=== PATIENT | male | born 1980 | race African-American/Black ===

== ENCOUNTER 2017-06-11 03:07 | Emergency (ER) | payer SELFPAY ==
[~2017-06-11] VITALS: Ht 170.2 cm; Wt 80.2 kg
[2017-06-11 03:13] VITALS: BP 149/86; PULSE 81; RESP 12; TEMP 97.8; O2SAT 97
[2017-06-11 03:20] VITALS: RESP 16
[2017-06-11] MEDS ORDERED: CEPH-460 PO (03:42)
[2017-06-11] MEDS ORDERED: PRED50 PO (03:42)
[2017-06-11] MEDS ORDERED: ACYC800T PO (03:42)
--- NOTE | 2017-06-11 03:42 | PD ---
HPI Chief Complaint: Skin Problem Time Seen by Provider: 03:19 Travel History International Travel<30 days: No Contact w/Intl Traveler<30days: No Traveled to known affect area: No History of Present Illness HPI 36-year-old male here for evaluation of painful rash on scalp, face, and groin. Patient reports that he recently moved to a new residence. He is and has been in a monogamous relationship with his for the past 8 years. States that the rash started about 2-3 days ago his scalp which was very pruritic. He states that some of the lesions are open and are somewhat drainage. He also has 2 lesions on his right leg/thigh as well as on his groin at the base of his penis. There is no penile discharge. Denies fevers or chills. No visual disturbances. He smokes marijuana. Denies any other illicit drugs or IVDU. PFSH Past Medical History Diminished Hearing: No Immunizations Current: No Influenza Vaccination: No ?: Not Past Surgical History Abdominal Surgery: Yes (HERNIA REPAIR, abscess removal abdomen) Other Surgery: Yes (cyst in chest age 5, CHEST SURGERY FROM [facility]) Social History Alcohol Use: Yes (12 BEERS A DAY) Tobacco Use: Yes (1/2 PPD) Substance Use: No Allergies-Medications (Allergen,Severity, Reaction): Coded Allergies: No Known Allergies (Verified Adverse Reaction, Unknown, 06/11/17) Reported Meds & Prescriptions Reported Meds & Active Scripts Active Prednisone 50 Mg Tab 50 Mg PO DAILY 5 Days Keflex (Cephalexin) 500 Mg Cap 500 Mg PO Q8H Acyclovir 800 Mg Tab 800 Mg PO 5 TIMES A DAY 5 Days Review of Systems Except as stated in HPI: all other systems reviewed are Neg Physical Exam Narrative GENERAL: Well-developed, well-nourished, awake, alert, no apparent distress. SKIN: Right parietal scalp/posterior ear with vesicular rash with open lesions with honeycombing and surrounding warmth and erythema, no purulent drainage, no fluctuance or induration. There are some pustules on the patient's right forehead. Patient has 2 open lesions on his right lower extremity, one on his mid/medial thigh and one on his medial leg which are open with surrounding warmth, no fluctuance or induration. Patient has 2 lesions at the base of his penis that he reports were initially pustules/ingrown hairs, however were squeezed and are now warm and erythematous. There are no ulcerations to these lesions, and they do not appear vesicular. Interdigit webbing in bilateral hands without rash or track donahue to suggest scabies. Right posterior cervical chain lymphadenopathy. HEAD: Skin exam as above. Scalp is without mites or lice. Normocephalic. EYES: Pupils equal and round. Bilateral fluorescein stain shows no corneal abrasions, no dendritic lesions. No scleral icterus. No injection or drainage. ENT: Mucous membranes pink and moist. No intraoral lesions. NECK: Trachea midline. No JVD. CARDIOVASCULAR: Regular rate and rhythm. RESPIRATORY: No accessory muscle use. Clear to auscultation. Breath sounds equal bilaterally. MUSCULOSKELETAL: No obvious deformities. No clubbing. No cyanosis. No edema. NEUROLOGICAL: Awake and alert. No obvious cranial nerve deficits. Motor grossly within normal limits. Normal speech. PSYCHIATRIC: Appropriate mood and affect; insight and judgment normal. Data Data Last Documented VS Vital Signs Date Time Temp Pulse Resp B/P (MAP) Pulse Ox O2 Delivery O2 Flow Rate FiO2 06/11/17 03:22 16 06/11/17 03:13 97.8 81 149/86 (107) 97 Orders Orders Prednisone (Deltasone) (06/11/17 03:45) Cephalexin (Keflex) (06/11/17 03:45) Acyclovir (Zovirax) (06/11/17 03:45) [facility] Medical Decision Making Medical Screen Exam Complete: Yes Emergency Medical Condition: Yes Differential Diagnosis Shingles, superinfection, cellulitis, herpetic/vesicular rash, herpes Narrative Course Initial vital signs show heart rate 81, blood pressure 149/86, pulse ox 97% on room air, oral temp of 97.8F. Patient has several lesions throughout his body. On his right scalp. He has vesicular lesions that appear to be herpetic in nature with superinfection with honeycombing and surrounding warmth and erythema. There is no purulent drainage. Appears to be zoster with some cellulitis. The patient has 2 lesions on his right leg that are open that initially began as pustules and the patient has been squeezing with surrounding warmth. There is no purulent drainage, no fluctuance or induration. On the base of his penis there are also 2 very small lesions which patient also states he has pustules and he squeezed. He sexually active with his only and has been with her for last 8 years and believes he is in a monogamous relationship. No penile discharge. He does have some right posterior cervical lymphadenopathy as well. There are no intraoral lesions. Bilateral fluorescein stain of the eyes show no ulcerations or dendritic lesions. Plan is to start the patient on acyclovir, Keflex, and prednisone, and have him follow-up with a primary care physician this week. I will give him the information to the [facility] to follow up with. I also advised that he return to the emergency Department in 2 days for a wound check. He was informed on when to return to the emergency Department sooner. He verbalizes understanding and agreement with plan. Diagnosis Primary Impression: Herpetic dermatitis Additional Impression: Cellulitis Qualified Codes: L03.90 - Cellulitis, unspecified Referrals: [facility] 3 days Additional Instructions: Follow-up with a primary care physician this week. Return to the Emergency Department in 2 days for a wound check. Take medications as prescribed. Return to the emergency Department sooner for worsening symptoms or any other concerns. Scripts Prednisone (Prednisone) 50 Mg Tab 50 MG PO DAILY for 5 Days, #5 TAB 0 Refills Prov: Billy Herbert MD 06/11/17 Cephalexin (Keflex) 500 Mg Cap 500 MG PO Q8H for Infection, #30 CAP 0 Refills Prov: Billy Herbert MD 06/11/17 Acyclovir (Acyclovir) 800 Mg Tab 800 MG PO 5 TIMES A DAY for Mgmt Viral Infection for 5 Days, TAB 0 Refills Prov: Billy Herbert MD 06/11/17 Disposition: 01 DISCHARGE HOME Condition: Stable Billy Herbert MD Jun 11, 2017 03:42
[2017-06-11] MEDS ORDERED: CEPHALEXIN MONOHYDRATE 500 MG CAP PO ONE (03:45)
[2017-06-11] MEDS ORDERED: ACYCLOVIR 800 MG TAB PO ONE (03:45)
[2017-06-11] MEDS ORDERED: predniSONE 50 MG TAB PO ONE (03:45)
[2017-06-11 04:09] VITALS: BP 142/86
== END 2017-06-11 04:11 | disposition home or self-care (01) ==
LOC: PHED 03:07
DX: L13.0 Dermatitis herpetiformis (principal); L03.811 Cellulitis of head [any part, except face]; R59.1 Generalized enlarged lymph nodes; F12.10 Cannabis abuse, uncomplicated; F17.200 Nicotine dependence, unspecified, uncomplicated; Z79.899 Other long term (current) drug therapy
CPT/HCPCS: 99284; J7512

== ENCOUNTER 2017-06-13 02:02 | Emergency (ER) | payer SELFPAY ==
[~2017-06-13] VITALS: Ht 170.2 cm; Wt 80.3 kg
[~2017-06-13 02:02] MED LIST: ACYC800T PO; CEPH-460 PO; PRED50 PO
[2017-06-13 02:07] VITALS: BP 150/87; PULSE 78; RESP 12; TEMP 97.8; O2SAT 97
--- NOTE | 2017-06-13 02:26 | PD ---
HPI Chief Complaint: Wound/Suture/Staple Re-Check Time Seen by Provider: 02:10 Travel History International Travel<30 days: No Contact w/Intl Traveler<30days: No Traveled to known affect area: No History of Present Illness HPI The patient is a 36-year-old male that complains of cough, congestion and some chest pain to the right of midline anteriorly for about 2 days. He denies any fever. His cough is persistent and he does complain of myalgias. He denies any headache. PFSH Past Medical History Diminished Hearing: No Immunizations Current: No Past Surgical History Abdominal Surgery: Yes (HERNIA REPAIR, abscess removal abdomen) Other Surgery: Yes (cyst in chest age 5, CHEST SURGERY FROM [facility]) Social History Alcohol Use: Yes (12 BEERS A DAY) Tobacco Use: Yes (/2 PPD) Substance Use: No Allergies-Medications (Allergen,Severity, Reaction): Coded Allergies: No Known Allergies (Verified Adverse Reaction, Unknown, 06/13/17) Reported Meds & Prescriptions Reported Meds & Active Scripts Active Ibuprofen 800 Mg Tab 800 Mg PO TID Prednisone 50 Mg Tab 50 Mg PO DAILY 5 Days Keflex (Cephalexin) 500 Mg Cap 500 Mg PO Q8H Acyclovir 800 Mg Tab 800 Mg PO 5 TIMES A DAY 5 Days Review of Systems Except as stated in HPI: all other systems reviewed are Neg Physical Exam Narrative GENERAL: The patient is alert, oriented 3 and no respiratory distress. His vital signs show blood pressure 150/87 but are otherwise normal. SKIN: Focused skin assessment warm/dry. The patient has healing ulcers on the scalp, he was seen on the fourth of this month for these and prescribed prednisone, cephalexin and acyclovir. HEAD: Atraumatic. Normocephalic. EYES: Pupils equal and round. No scleral icterus. No injection or drainage. ENT: No nasal bleeding or discharge. Mucous membranes pink and moist. NECK: Trachea midline. No JVD. CARDIOVASCULAR: Regular rate and rhythm. No murmur appreciated. RESPIRATORY: No accessory muscle use. Scattered wheezes and rhonchi are heard to the right of midline anteriorly. Breath sounds equal bilaterally. GASTROINTESTINAL: Abdomen soft, non-tender, nondistended. Hepatic and splenic margins not palpable. MUSCULOSKELETAL: No obvious deformities. No clubbing. No cyanosis. No edema. NEUROLOGICAL: Awake and alert. No obvious cranial nerve deficits. Motor grossly within normal limits. Normal speech. PSYCHIATRIC: Appropriate mood and affect; insight and judgment normal. Data Data Last Documented VS Vital Signs Date Time Temp Pulse Resp B/P (MAP) Pulse Ox O2 Delivery O2 Flow Rate FiO2 06/13/17 02:30 20 06/13/17 02:07 97.8 78 150/87 (108) 97 Orders Orders Influenzae A/B Antigen (06/13/17 02:18) Chest, Pa & Lat (06/13/17 02:18) Ibuprofen (Motrin) (06/13/17 03:00) MDM Medical Decision Making Medical Screen Exam Complete: Yes Emergency Medical Condition: Yes Medical Record Reviewed: Yes Interpretation(s) The influenza A/B antigen is negative for flu a and flu B antigen. The chest x- ray is normal. Differential Diagnosis Syndrome, nonspecific viral syndrome, pneumonia, bronchitis Narrative Course The patient appears to have a nonspecific viral syndrome. Myalgias or one of his strongest complaints and he will be given Motrin 800 mg 3 times a day. He needs to get a work excuse as well. Diagnosis Primary Impression: Viral syndrome Additional Instructions: The ibuprofen is taken one tablet 3 times daily. It works best when you take it regularly and he develop high anti-inflammatory levels in her body. Follow- up next week with your primary care physician. If worse, return to emergency department. Med/Other Pt SpecificInfo: Prescription(s) given Scripts Ibuprofen (Ibuprofen) 800 Mg Tab 800 MG PO TID, #33 TAB 0 Refills Prov: Satish Chan MD 06/13/17 Disposition: 01 DISCHARGE HOME Condition: Stable Satish Chan MD Jun 13, 2017 02:26
[2017-06-13] MEDS ORDERED: IBUP1TAB7 PO (02:47)
[2017-06-13] MEDS ORDERED: IBUPROFEN 800 MG TAB PO ONE (03:00)
--- NOTE | 2017-06-13 03:04 | RADRPT ---
EXAM DATE/TIME: 06/13/2017 02:32 [facility] COMPARISON: No previous studies available for comparison. INDICATIONS : Cough. MEDICAL HISTORY : None. SURGICAL HISTORY : None. ENCOUNTER: Initial ACUITY: 1 day PAIN SCORE: 0/10 LOCATION: Bilateral chest FINDINGS: PA and lateral views of the chest. The lungs are clear. Cardiomediastinal silhouette within normal li mits. No evidence of pleural effusion or pneumothorax. CONCLUSION: No acute cardiopulmonary disease identified. Juarez Hill MD on June 13, 2017 at 3:01 Board Certified Radiologist. This report was verified electronically.
[2017-06-13 03:24] VITALS: BP 147/78
== END 2017-06-13 03:25 | disposition home or self-care (01) ==
LOC: PHED 02:02
DX: B34.9 Viral infection, unspecified (principal); L98.499 Non-pressure chronic ulcer of skin of other sites with unspecified severity; F17.200 Nicotine dependence, unspecified, uncomplicated
CPT/HCPCS: 71046; 87804; 99284

== ENCOUNTER 2017-07-05 01:43 | Emergency (ER) | payer SELFPAY ==
[~2017-07-05] VITALS: Ht 170.2 cm; Wt 79.6 kg
[~2017-07-05 01:43] MED LIST changes: +IBUP1TAB7 PO
[2017-07-05 01:48] VITALS: PULSE 79; RESP 18; TEMP 98.3; O2SAT 98
[2017-07-05 01:57] VITALS: BP 173/79
[2017-07-05] MEDS ORDERED: TETANUS/DIPHTHERIA TOXOID ADULT 0.5 ML VIAL IM ONE (03:30)
[2017-07-05] MEDS ORDERED: LIDOCAINE 1%/EPINEPHrine 1:100,000 SOLN 20 ML VIAL INFIL ONE (03:30)
[2017-07-05] MEDS ORDERED: BACT800T5 PO (03:41)
--- NOTE | 2017-07-05 03:43 | PD ---
HPI Chief Complaint: Skin Problem Time Seen by Provider: 03:17 Travel History International Travel<30 days: No Contact w/Intl Traveler<30days: No Traveled to known affect area: No History of Present Illness HPI The patient is a 36-year-old male that complains of a left leg abscess below the left buttocks for 3 days. The patient rides a motorcycle. He noticed a small bump that is been there for years but it started getting infected then spread rapidly. He denies any fever. He does not have a history of diabetes. He does not remember when his last and a shot was, it could've been over 10 years. PFSH Past Medical History Diminished Hearing: No Immunizations Current: No Past Surgical History Abdominal Surgery: Yes (HERNIA REPAIR, abscess removal abdomen) Other Surgery: Yes (cyst in chest age 5, CHEST SURGERY FROM [facility]) Social History Alcohol Use: Yes (12 BEERS A DAY) Tobacco Use: Yes (1/2 PPD) Substance Use: No Allergies-Medications (Allergen,Severity, Reaction): Coded Allergies: No Known Allergies (Verified Adverse Reaction, Unknown, 07/05/17) Reported Meds & Prescriptions Reported Meds & Active Scripts Active Review of Systems Except as stated in HPI: all other systems reviewed are Neg Physical Exam Narrative GENERAL: Well-nourished, well-developed patient in moderate apparent distress with his left buttocks pain. His vital signs show blood pressure 173/79 but otherwise normal. SKIN: Focused skin assessment warm/dry. There is a 2 x 3 x 1 cm abscess below the left buttocks. Surrounding this area is a 3 x 5 cm cellulitic area. The abscess is fluctuant. HEAD: Normocephalic. EYES: No scleral icterus. No injection or drainage. NECK: Supple, trachea midline. No JVD or lymphadenopathy. CARDIOVASCULAR: Regular rate and rhythm without murmurs, gallops, or rubs. RESPIRATORY: Breath sounds equal bilaterally. No accessory muscle use. GASTROINTESTINAL: Abdomen soft, non-tender, nondistended. MUSCULOSKELETAL: No cyanosis, or edema. BACK: Nontender without obvious deformity. No CVA tenderness. Data Data Last Documented VS Vital Signs Date Time Temp Pulse Resp B/P (MAP) Pulse Ox O2 Delivery O2 Flow Rate FiO2 07/05/17 02:15 20 07/05/17 01:57 173/79 (110) 07/05/17 01:48 98.3 79 98 Orders Orders Wound Culture And Gram Stain (07/05/17 03:17) Wound Care (07/05/17 03:17) Lidocai-Epi 1%-1:100,000 Inj (Xylocaine- (07/05/17 03:30) Tetanus/Diphtheria Tox Adult (Tetanus/Di (07/05/17 03:30) MDM Medical Decision Making Medical Screen Exam Complete: Yes Emergency Medical Condition: Yes Medical Record Reviewed: Yes Differential Diagnosis Abscess, cellulitis, furuncle, carbuncle Narrative Course The patient has an abscess. It had a single, fairly mature cavity filled with pus. This area does not limited self to packing and the patient will be given peroxide Q-tip so that his once or twice daily can insert a peroxide Q-tip through the incision to keep the incision open and 2 clean the cavity out. Procedures Procedure Narrative The abscess roof was infiltrated with lidocaine and a 1.2 cm incision was made over the roof. A large amount of pus poured out of this area. The area was cleaned with peroxide moistened Q-tips. The patient tolerated the procedure well. Diagnosis Primary Impression: Abscess of buttock, left Additional Impression: Encounter for incision and drainage procedure Additional Instructions: As we discussed, have your insert a peroxide moistened Q-tip into the abscess cavity twice daily for a few days and then once daily for about 5 days. This will keep the abscess draining and clean the abscess. The more your abscess drains and the equipment or machinery cleaner abscess is, the quicker it will heal. The antibiotic is one tablet twice daily for 10 days. Med/Other Pt SpecificInfo: Prescription(s) given Scripts Sulfamethoxazole-Trimethoprim (Bactrim DS) 800-160 Mg Tab 1 TAB PO BID for Infection, #20 TAB 0 Refills Prov: Satish Chan MD 07/05/17 Disposition: 01 DISCHARGE HOME Condition: Stable Satish Chan MD Jul 05, 2017 03:43
[2017-07-05] MEDS ORDERED: SULFAMETHOXAZOLE-TRIMETHOPRIM DS 800-160 MG TAB PO ONE (03:45)
[2017-07-05 04:13] VITALS: BP 152/74
== END 2017-07-05 04:14 | disposition home or self-care (01) ==
LOC: PHED 01:43
DX: L02.31 Cutaneous abscess of buttock (principal); A49.01 Methicillin susceptible Staphylococcus aureus infection, unspecified site; F17.200 Nicotine dependence, unspecified, uncomplicated; Z23 Encounter for immunization
CPT/HCPCS: 10060; 86403; 87070; 87186; 87205; 90471; 90714